=== PATIENT | female | born 1960 | race Caucasian/White ===

== ENCOUNTER 2017-11-06 06:33 | Day surgery (SDC) | payer OTHER ==
[2017-11-06] MEDS ORDERED: PROPOFOL 20 ML (07:28)
== END 2017-11-06 11:52 | disposition home or self-care (01) ==
LOC: GIL 06:33
DX: Z12.11 Encounter for screening for malignant neoplasm of colon (principal); C18.0 Malignant neoplasm of cecum
CPT/HCPCS: 45380; 88305